=== PATIENT | male | born 1990 | race Caucasian/White ===

== ENCOUNTER 2019-06-16 00:28 | Emergency (ER) | payer OTHER | END 2019-06-16 02:23 | disposition home or self-care (01) | LOC: E/R 00:28 | DX: T43.621A Poisoning by amphetamines, accidental (unintentional), initial encounter (principal); J45.901 Unspecified asthma with (acute) exacerbation; F17.210 Nicotine dependence, cigarettes, uncomplicated | CPT/HCPCS: 71045; 93005; 99284-25 ==

== ENCOUNTER 2019-07-08 21:46 | Emergency (ER) | payer SELFPAY, OTHER | END 2019-07-08 21:48 | disposition left against medical advice (07) | LOC: FTE 21:46 | DX: Z53.21 Procedure and treatment not carried out due to patient leaving prior to being seen by health care provider (principal) ==